=== PATIENT | female | born 1990 | race Caucasian/White ===

== ENCOUNTER 2018-10-27 21:18 | Emergency (ER) | payer SELFPAY ==
[2018-10-27 22:01] VITALS: BP 126/83
--- NOTE | 2018-10-27 22:30 | ED Physician Documentation ---
History of Present Illness - Stated complaint Stated Complaint: NUMBNESS LT ARM/ABD PX - Chief complaint Chief Complaint: Abd Pain - Additonal information Additional information: hx from pt 27 y/o f to ED CC RUQ pain afetr dinner (chicken and cheesy broccoli) pain was severe + NV was breathing fast due to pajn and both hands became tingly pain has now subsided and so has tingling never had pain like this before no prior surgery no fever chils but + sweats no rad to back or chest LMP is 27 days late Review of Systems Constitutional: reports: Sweats. denies: Fever, Chills Cardiac: denies: Chest pain / pressure Respiratory: denies: Dyspnea, Cough GI: reports: Abdominal Pain, Nausea, Vomiting. denies: Diarrhea : denies: LMP (27 days late - neg urine and serum HCG in last week though) Musculoskeletal: denies: Back pain Endocrine: denies: Easy bruising / bleeding Immunocompromised: denies: Immunocompromised PD PAST MEDICAL HISTORY - Past Medical History Past Medical History: No - Past Surgical History Past Surgical History: No - Present Medications Home Medications: Ambulatory Orders Medication Instructions Recorded Confirmed Multivitamin [One Daily 1 each PO 10/27/18 Multivitamin] Cefixime [Suprax] 400 mg PO DAILY #6 capsule 10/28/18 - Allergies Allergies/Adverse Reactions: Allergies Allergy/AdvReac Type Severity Reaction Status Date / Time Penicillins Allergy Rash Verified 10/27/18 21:26 - Social History Does the pt smoke?: No Smoking Status: Never smoker Does the pt drink ETOH?: Yes ETOH Use: Wine Does the pt have substance abuse?: No - Immunizations Immunizations: TDAP current <10years PD ED PE NORMAL - Vitals Vital signs reviewed: Yes - Cardiac Cardiac: RRR - Respiratory Respiratory: No respiratory distress - Abdomen Abdomen: Soft, Other (mild ruq TTP s murphys, no rlq or pelvic TTP) - Back Back: No CVA TTP - Derm Derm: Normal color - Neuro Neuro: Alert and oriented X 3 Results - Vitals Vitals: Vital Signs - 24 hr 10/27/18 10/27/18 21:22 21:59 Temperature 36.6 C Heart Rate 71 75 Respiratory 17 18 Rate Blood Pressure 126/69 126/83 H O2 Saturation 94 98 Oxygen O2 Source Room air - Labs Labs: Laboratory Tests 10/27/18 10/27/18 10/27/18 22:30 22:30 22:30 WBC 11.5 H RBC 4.93 Hgb 14.2 Hct 41.9 MCV 85.0 MCH 28.9 MCHC 34.0 RDW 13.0 Plt Count 223 MPV 8.1 Neut # (Auto) 8.9 H Lymph # (Auto) 1.8 Atlantic # (Auto) 0.7 Eos # (Auto) 0.1 Baso # (Auto) 0.1 Absolute Nucleated RBC 0.00 Nucleated RBC % 0.0 Sodium 135 Potassium 3.4 L Chloride 102 Carbon Dioxide 26 Anion Gap 7.0 BUN 10 Creatinine 0.7 Estimated GFR (MDRD) 101 Glucose 114 H Calcium 8.8 Total Bilirubin 0.6 AST 33 ALT 33 Alkaline Phosphatase 48 Total Protein 7.2 Albumin 4.3 Globulin 2.9 Albumin/Globulin Ratio 1.5 Lipase 25 Serum HCG, Qual NEGATIVE Urine Color Urine Clarity Urine pH Ur Specific [place] Urine Protein Urine Glucose (UA) Urine Ketones Urine Occult Blood Urine Nitrite Urine Bilirubin Urine Urobilinogen Ur Leukocyte Esterase Ur Microscopic Review Urine Culture Comments 10/27/18 23:17 WBC RBC Hgb Hct MCV MCH MCHC RDW Plt Count MPV Neut # (Auto) Lymph # (Auto) Atlantic # (Auto) Eos # (Auto) Baso # (Auto) Absolute Nucleated RBC Nucleated RBC % Sodium Potassium Chloride Carbon Dioxide Anion Gap BUN Creatinine Estimated GFR (MDRD) Glucose Calcium Total Bilirubin AST ALT Alkaline Phosphatase Total Protein Albumin Globulin Albumin/Globulin Ratio Lipase Serum HCG, Qual Urine Color YELLOW Urine Clarity CLEAR Urine pH 6.0 Ur Specific [place] 1.015 Urine Protein NEGATIVE Urine Glucose (UA) NEGATIVE Urine Ketones NEGATIVE Urine Occult Blood NEGATIVE Urine Nitrite NEGATIVE Urine Bilirubin NEGATIVE Urine Urobilinogen 0.2 (NORMAL) Ur Leukocyte Esterase NEGATIVE Ur Microscopic Review NOT INDICATED Urine Culture Comments NOT INDICATED - Rads (name of study) GB sono Radiology: See rad report (GB packed with stones, neg sono murphys, no wall thickening, no pericholecystic fluid, nl ducts, fatty liver) PD MEDICAL DECISION MAKING - ED course ED course: pain is c/w biliary colic some concern re status check labs and sono sono shows stones no fever nl bili but slightly elev WBC pain has subsided now feel safe to dc with PO ab and close fup with surgery clinic and precautions to return if worse pt states her penicillin all was a rash around site of injection as a feel safe to use cephalosporin Departure - Departure Disposition: 01 Home, Self Care Clinical Impression: Gallstones Condition: Good Instructions: ED Gallstone W Biliary Colic Follow-Up: Jean Bingham MD [Provider Admit Priv/Credential] - Prescriptions: Cefixime [Suprax] 400 mg PO DAILY #6 capsule Comments: The ultrasound shows your gallbladder is full of stones. And your white blood cell count is elevated so an infection may be starting to develop. Since that pain has subsided for now and the liver function tests are normal, it is OK for you to go home for tonight on antibiotics and a low fat diet. But you need to call the surgical clinic in the morning to schedule an appointment to discuss getting your gallbladder taken out. If you get worse at any time (fever, yellow eyes or skin, severe pain lasting more than 30 minutes, intractable vomiting) come back to the ER Forms: Activity restrictions
[2018-10-27 22:36] LABS: BASOPHILS # (AUTO) 0.1 10^3/uL (0.0-0.1); BASOPHILS % (AUTO) 0.7 %; EOSINOPHILS # (AUTO) 0.1 10^3/uL (0.0-0.7); EOSINOPHILS % (AUTO) 0.5 %; HGB - HEMOGLOBIN 14.2 g/dL (12.0-16.0); LYMPHOCYTES # (AUTO) 1.8 10^3/uL (1.5-3.5); LYMPHOCYTES % (AUTO) 15.8 %; MEAN CORPUSCULAR HEMOGLOBIN 28.9 pg (27.0-31.0); MEAN PLATELET VOLUME 8.1 fL (7.9-10.8); MONOCYTES # (AUTO) 0.7 10^3/uL (0.0-1.0); MONOCYTES % (AUTO) 5.7 %; NEUTROPHILS # (AUTO) 8.9 10^3/uL (1.5-6.6); NEUTROPHILS % (AUTO) 77.3 %; PLT - PLATELET COUNT 223 10^3/uL (130-450); RED BLOOD COUNT 4.93 10^6/uL (4.20-5.40); WHITE BLOOD COUNT 11.5 x10^3/uL (4.8-10.8)
[2018-10-27 22:50] LABS: ALBUMIN 4.3 g/dL (3.2-5.5); ALBUMIN/GLOBULIN RATIO 1.5 (1.0-2.2); BILIRUBIN,TOTAL 0.6 mg/dL (0.2-1.0); CALCIUM 8.8 mg/dL (8.5-10.3); CREATININE 0.7 mg/dL (0.4-1.0); TOTAL PROTEIN 7.2 g/dL (6.7-8.2)
[2018-10-27 23:03] LABS: HCG,QUALITATIVE BLOOD NEGATIVE
[2018-10-27 23:26] LABS: BILIRUBIN,URINE NEGATIVE (NEGATIVE); GLUCOSE, URINE (UA) NEGATIVE (NEGATIVE); KETONES,URINE (UA) NEGATIVE (NEGATIVE); LEUKOCYTE ESTERASE, URINE NEGATIVE (NEGATIVE); NITRITE,URINE NEGATIVE (NEGATIVE); OCCULT BLOOD,URINE NEGATIVE (NEGATIVE); PROTEIN,URINE NEGATIVE (NEGATIVE); UROBILINOGEN,URINE 0.2 (NORMAL) E.U./dL (NORMAL)
[2018-10-27 23:27] LABS: CLARITY,URINE CLEAR (CLEAR)
--- NOTE | 2018-10-28 01:13 | Ultrasound Report ---
Reason: ruq pain after dinner Procedure Date: 10/28/2018 Accession Number: [id number] / [id number] Procedure: US - Abdomen Limited CPT Code: FULL RESULT: EXAM: ABDOMEN ULTRASOUND LIMITED, RUQ EXAM DATE: 10/28/2018 12:05 AM. CLINICAL HISTORY: Ruq pain after dinner. COMPARISON: None. TECHNIQUE: Real-time scanning was performed with static images obtained. FINDINGS: Liver: Moderate increased echogenicity. No suspicious focal lesion. Liver measures 19.2 cm in length. Portal Vein: Patent with hepatopetal flow. Gallbladder: Gallbladder is filled with numerous stones. No pathologic wall thickening evident. Absent sonographic Banks sign. No pericholecystic fluid. Biliary System: CBD measures 4.2 mm. No intrahepatic or extrahepatic ductal dilatation. Pancreas: Normal appearing head and body. Other portions are obscured by overlying structures. Right Kidney: Visualized portions of the right kidney are without significant abnormality. Right kidney measures 11.6 cm in length. Other: None. IMPRESSION: 1. Gallbladder is packed with numerous stones. It is also mildly distended. However no pathologic wall thickening, pericholecystic fluid, or sonographic Banks sign demonstrated. 2. No pathologic biliary ductal dilation. 3. There is moderate hepatic steatosis and at least mild hepatomegaly. RADIA
[2018-10-28] MEDS ORDERED: cefTRIAXone 1 GM VIAL IM STA (01:17)
[2018-10-28] MEDS ORDERED: LIDOCAINE 1% 2 ML VIAL SUBQ ONE (01:17)
== END 2018-10-28 01:42 | disposition home or self-care (01) ==
LOC: ED 21:18
DX: K80.80 Other cholelithiasis without obstruction (principal)
CPT/HCPCS: 36415; 76705; 80053; 81001; 81003; 83690; 84703; 85025; 87086; 96372; 99283

== ENCOUNTER 2018-11-03 13:43 | Emergency (ER) | payer MEDICAID ==
[2018-11-03 13:51] VITALS: BP 138/80
--- NOTE | 2018-11-03 14:00 | ED Physician Documentation ---
History of Present Illness - Stated complaint Stated Complaint: MED REFILL - Chief complaint Chief Complaint: General - History obtained from History obtained from: Patient - History of Present Illness Timing: Other (She was here about a week ago and diagnosed with gallstones and biliary colic. She still has mild pain that gets worse after she eats. She tried to find of her surgical referral. In the meantime she is worried because she is out of antibiotics and needs a refill. Her insurance did not cover the cefixime. She is been taking clindamycin, but I am not sure that is a great choice because of its poor gram-negative coverage.) Review of Systems Constitutional: denies: Fever, Chills GI: reports: Abdominal Pain. denies: Nausea, Vomiting, Diarrhea : denies: Dysuria, Frequency PD PAST MEDICAL HISTORY - Past Medical History Past Medical History: Yes Other Past Medical History: Gallstones - Past Surgical History Past Surgical History: No - Present Medications Home Medications: Ambulatory Orders Medication Instructions Recorded Confirmed Multivitamin [One Daily 1 each PO 10/27/18 Multivitamin] Cefixime [Suprax] 400 mg PO DAILY #6 capsule 10/28/18 Ciprofloxacin HCl [Cipro] 500 mg PO BID #28 tablet 11/03/18 - Allergies Allergies/Adverse Reactions: Allergies Allergy/AdvReac Type Severity Reaction Status Date / Time Penicillins Allergy Rash Verified 10/27/18 21:26 - Social History Does the pt smoke?: No Smoking Status: Never smoker Does the pt drink ETOH?: Yes Does the pt have substance abuse?: No - Immunizations Immunizations are current?: Yes Immunizations: TDAP current <10years - POLST Patient has POLST: No PD ED PE NORMAL - Vitals Vital signs reviewed: Yes - General General: Alert and oriented X 3, No acute distress - Abdomen Abdomen: Normal bowel sounds, Soft, Non tender - Neuro Neuro: Alert and oriented X 3, Normal speech Results - Vitals Vitals: Vital Signs - 24 hr 11/03/18 13:46 Temperature 36.5 C Heart Rate 78 Respiratory 14 Rate Blood Pressure 138/80 H O2 Saturation 99 Oxygen O2 Source Room air Departure - Departure Disposition: 01 Home, Self Care Clinical Impression: Biliary colic Condition: Good Record reviewed to determine appropriate education?: Yes Instructions: ED Gallstone W Biliary Colic Follow-Up: Gael Chu MD [Provider Admit Priv/Credential] - Prescriptions: Ciprofloxacin HCl [Cipro] 500 mg PO BID #28 tablet Comments: Follow-up with the surgeon as soon as possible. Return for new or worsening symptoms. Your blood pressure was elevated today on check into the emergency department. This does not mean that you have hypertension, it is a common phenomenon to come to the emergency department and have elevated blood pressure. I recommend that you see your primary care physician within the week to have it rechecked when you are feeling better.
== END 2018-11-03 14:12 | disposition home or self-care (01) ==
LOC: ED 13:43
DX: K80.50 Calculus of bile duct without cholangitis or cholecystitis without obstruction (principal); R03.0 Elevated blood-pressure reading, without diagnosis of hypertension
CPT/HCPCS: 99283

== ENCOUNTER 2018-11-19 11:42 | Day surgery (SDC) | payer OTHER, MEDICAID ==
[2018-11-19] MEDS ORDERED: ceFAZolin 2 GM/50 ML 2 GM/50 ML BAG IV ONE (12:19)
[2018-11-19] MEDS ORDERED: LACTATED RINGERS 1,000 ML IV ONE ×2 (12:23→16:38)
--- NOTE | 2018-11-19 14:11 | ANESTHESIA ---
Pre-Anesthesia VS, & Labs - Diagnosis symptomatic cholelithiasis - Procedure laparoscopic cholecystectomy Vital Signs: Temp Pulse Resp BP Pulse Ox 37 C 88 16 131/71 H 96 11/19/18 12:23 11/19/18 12:23 11/19/18 12:23 11/19/18 12:23 11/19/18 12:23 Height 5 ft 6 in Weight (kg) 91.8 kg Body Mass Index 31.4 - NPO >8 hours - Is Patient ?: No - Lab Results Lab results reviewed: Yes Home Medications and Allergies Allergies/Adverse Reactions: Allergies Allergy/AdvReac Type Severity Reaction Status Date / Time Penicillins Allergy Rash Verified 10/27/18 21:26 Anes History & Medical History - Anesthetic History Anesthesia Complications: reports: No previous complications Family history of Anesthesia Complications: Denies Family history of Malignant Hyperthermia: Denies - Medical History Cardiovascular: reports: None Pulmonary: reports: None Gastrointestinal: reports: Cholelithiasis Urinary: reports: None Musculoskeletal: reports: None Endocrine/Autoimmune: reports: None Skin: reports: None Smoking Status: Never smoker Exam Dental: WNL Mouth Openin Fingerbreadth Neck Mobility: Normal Mallampati classification: I Thyromental Distance: greater than 6 cm Respiratory: Lungs clear, Normal breath sounds, No respiratory distress, No accessory muscle use Cardiovascular: Regular rate, Normal S1, Normal S2, No murmurs Plan Anesthesia Type: General Consent for Procedure(s) Verified and Reviewed: Yes Code Status: Attempt Resuscitation ASA classification: 1-Healthy patient Is this case an emergency?: No
[2018-11-19 14:22] LABS: HCG UR QUAL NEGATIVE
[2018-11-19] MEDS ORDERED: ROCURONIUM 50 MG/5 ML VIAL IVP ONE (15:00)
[2018-11-19] MEDS ORDERED: fentaNYL 100 MCG/2 ML VIAL IVP ONE (15:00)
[2018-11-19] MEDS ORDERED: MIDAZOLAM 2 MG/2 ML VIAL IVP ONE (15:00)
[2018-11-19] MEDS ORDERED: LIDOCAINE-MPF 2% 5 ML VIAL IM ONE (15:00)
[2018-11-19] MEDS ORDERED: NEOSTIGMINE 1 MG/1 ML 10 ML MDV IVP ONE (15:00)
[2018-11-19] MEDS ORDERED: DEXAMETHASONE 4 MG/ML VIAL IVP ONE (15:00)
[2018-11-19] MEDS ORDERED: GLYCOPYRROLATE 1 MG/5 ML VIAL IVP ONE (15:00)
[2018-11-19] MEDS ORDERED: PROPOFOL 1000 MG/100 ML IV ONE (15:00)
[2018-11-19] MEDS ORDERED: ONDANSETRON 4 MG/2 ML VIAL IVP ONE (15:00)
[2018-11-19] MEDS ORDERED: KETOROLAC 30 MG/ML VIAL IVP ONE (15:00)
[2018-11-19] MEDS ORDERED: BUPIVACAINE 0.5% PF 30 ML VIAL ONE (15:25)
[2018-11-19] MEDS ORDERED: BUPIVACAINE 0.5% PF 30 ML VIAL SUBQ ONE (16:09)
[2018-11-19] MEDS ORDERED: HYDROcod/ACETAM 5/325 MG TABLET PO PRN (17:01)
[2018-11-19] MEDS ORDERED: HYDROmorphone 0.5 MG/0.5 ML SYRINGE IVP PRN (17:01)
[2018-11-19] MEDS ORDERED: ONDANSETRON 4 MG/2 ML VIAL IVP PRN (17:01)
--- NOTE | 2018-11-19 17:06 | OPERATIVE REPORT ---
Operative Report - General Procedure Date: 11/19/18 Planned Procedure: Laparoscopic cholecystectomy, possible open cholecystectomy, possible intra Pre-Op Diagnosis: Symptomatic cholelithiasis Procedure Performed: Laparoscopic cholecystectomy Post Op Diagnosis: Same - Procedure Note Primary Surgeon: Jean Bingham MD Anesthesia Provider: Alexander Camarillo CRNA Anesthesia Technique: General ET tube, Local (30 mL of half percent Marcaine) IV Fluids (mL): 1,100 Estimated Blood Loss (mL): 5 Drain/Tube Type: Other (None.) Complications: None. - Other Other Information/Narrative: OPERATIVE DESCRIPTION/REPORT: After verbal and written informed consent was obtained detailing the risks of infection, bleeding with all of its risks including transfusion, common bile duct injury, and the patient was brought to the operative suite and placed in the supine position on the operating room table. Monitoring devices were applied along with TEDs and pneumatic compressive stockings. Care was taken to avoid pressure points. Prophylactic antibiotics were given. An adequate level of general endotracheal anesthesia was established by Alexander Camarillo CRNA. The abdomen was then prepped with ChloraPrep and draped in a sterile fashion. A "time in" then confirmed that the patient was identified with 3 identifiers (name, date and medical record number), the history and physical was in the chart, the signed consent confirming the procedure was in the chart, the patient was in the correct position, the aforementioned prophylactic measures were in place or given, we had the correct personnel and equipment to complete the procedure and that anesthesia, surgery and nursing were given an opportunity to express any concerns. The initial incision was at the umbilicus and dissection to the linea alba was completed using blunt dissection. The linea alba was grasped with a Hardy and incised. In a similar manner the peritoneum was grasped and incised using Metzenbaum scissors. In this location, a 12 mm blunt tipped, balloon tipped port was placed and the balloon was inflated to keep the port in position. The abdominal cavity was insufflated with carbon dioxide to steady-state pressure of 15 mmHg. Three additional 5 mm ports were placed in standard location for laparoscopic cholecystectomy (subxiphoid and 2 right subcostal) under direct vision of the 30 degree laparoscope and without incident. The patient was then placed in reverse Trendelenburg position and was rotated slightly to their left. The gallbladder fundus was grasped with an atraumatic grasper. Multiple adhesions had to be taken down with electrocautery. The infundibulum was grasped and retracted superiorly and laterally. Dissection was then begun in the angle of Calot. The cystic duct and (slightly medially and posteriorly) cystic artery were clearly identified. The critical view was obtained. Two clips proximally and one clip distally were used to control both the cystic duct and cystic artery. The clips were carefully placed to avoid occluding the juncture with the common bile duct. Both the cystic duct and then the cystic artery were then transected with laparoscopic lauren. The gallbladder was then removed from its fossa in a retrograde fashion using electrocautery. With the 30 degree 5 mm scope in the subxiphoid position, the gallbladder was placed in an EndoCatch bag to be extracted through the 12 mm port site. No irrigation was necessary as the gallbladder was removed without any leak or bleed. I inspected the gallbladder fossa and there was no bleeding or bile leak. Clips on the cystic duct and cystic artery appeared to be secure. I briefly visually explored the abdomen. There was no other evidence of overt pathology. I injected the port sites at the peritoneal, fascial, and skin levels under direct vision with 0.5% Marcaine. All ports and the EndoCatch containing the gallbladder were removed. Following gallbladder removal, the remaining carbon dioxide was expelled from the abdomen. The fascia at the umbilicus was reapproximated using 2 [id number] 0 Vicryl sutures. The skin at each port site was approximated using a subcuticular 4-0 Monocryl. The surgical count of instruments, needles and sponges was reported as correct twice. Mastisol, Steri-Strips and sterile surgical dressings were applied. The patient was then awakened from anesthesia, extubated, and having tolerated the procedure well, was transported to the recovery room. No complications were encountered. A "time out" confirmed the operation performed, the fluids given, the estimated blood loss and anesthesia, surgery and nursing were given an opportunity to express any concerns. Altimet disclaimer: This document was created in part using voice recognition technology. Because of the inherent limitations of the system ([employer]'s [employer] Dict[employer] user manual states that the licensee understands that speech recognition is a statistical process and that recognition errors are inherent in the process), occasional same sounding word substitutions and grammatical errors do occur and persist despite proofreading. Please read this document for context.
[2018-11-19] MEDS: HYDROmorphone 1 MG/ML CARPUJECT ONE ×3 (17:08→17:24)
[2018-11-19] MEDS ORDERED: SODIUM CHLORIDE FLUSH 0.9% 10 ML SYRINGE ONE (18:31)
[2018-11-19 20:17] VITALS: BP 118/64
== END 2018-11-19 23:25 | disposition home or self-care (01) ==
LOC: SDS 11:42 → MS2 17:49 → SDS 23:25
PROVIDERS: ATTEND Surgery
PROC: 0FT44ZZ Resection of Gallbladder, Percutaneous Endoscopic Approach (ICD-10-PCS; principal; 2018-11-19 13:10)
DX: K80.10 Calculus of gallbladder with chronic cholecystitis without obstruction (principal)
CPT/HCPCS: 47562; 81025; A9270; J0690; J1170; J7120

== ENCOUNTER 2018-11-28 09:13 | Outpatient (CLI) | payer MEDICAID, OTHER ==
[2018-11-28 13:12] LABS: BASOPHILS % (AUTO) 0.4 %; EOSINOPHILS # (AUTO) 0.2 10^3/uL (0.0-0.7); EOSINOPHILS % (AUTO) 2.9 %; HGB - HEMOGLOBIN 14.7 g/dL (12.0-16.0); LYMPHOCYTES # (AUTO) 1.9 10^3/uL (1.5-3.5); LYMPHOCYTES % (AUTO) 22.6 %; MEAN CORPUSCULAR HEMOGLOBIN 29.3 pg (27.0-31.0); MEAN CORPUSCULAR HGB CONC 34.7 g/dL (32.0-36.0); MEAN CORPUSCULAR VOLUME 84.4 fL (81.0-99.0); MEAN PLATELET VOLUME 9.3 fL (7.9-10.8); MONOCYTES # (AUTO) 0.6 10^3/uL (0.0-1.0); MONOCYTES % (AUTO) 6.5 %; NEUTROPHILS # (AUTO) 5.7 10^3/uL (1.5-6.6); NEUTROPHILS % (AUTO) 67.6 %; PLT - PLATELET COUNT 254 10^3/uL (130-450); RED BLOOD COUNT 5.01 10^6/uL (4.20-5.40); RED CELL DISTRIBUTION WIDTH 12.9 % (12.0-15.0); WHITE BLOOD COUNT 8.5 x10^3/uL (4.8-10.8)
[2018-11-28 13:35] LABS: BUN - BLOOD UREA NITROGEN < 5 mg/dL (6-20); CALCIUM 9.3 mg/dL (8.5-10.3); CARBON DIOXIDE - CO2 28 mmol/L (21-32); CHLORIDE 102 mmol/L (101-111); CREATININE 0.8 mg/dL (0.4-1.0); GFR - MDRD 87 (>89); GLUCOSE 87 mg/dL (70-100); SODIUM 138 mmol/L (135-145)
== END 2018-11-28 23:59 | disposition home or self-care (01) ==
LOC: LAB.N 09:13
PROVIDERS: ATTEND Physician Assistant Medical
DX: Z00.00 Encounter for general adult medical examination without abnormal findings (principal)
CPT/HCPCS: 36415; 80048; 84443; 85025